=== PATIENT | female | born 1960 | race Caucasian/White ===

== ENCOUNTER 2018-11-12 06:15 | Inpatient (IN) | payer BC ==
[2018-11-11 11:18] LABS: BASOPHIL % 1.5 % (0-2); PLATELET COUNT 307 x10^3mcL (130-400); RED CELL DISTRIBUTION WIDTH 13.5 % (11.5-14.5)
[2018-11-11 11:19] LABS: ALKALINE PHOSPHATASE 120 U/L (46-116); ALT/SGPT 21 U/L (14-59); AST/SGOT 15 U/L (15-37); BILIRUBIN TOTAL 0.6 mg/dL (0.20-1.00); CALCIUM 10.1 mg/dL (8.5-10.1); CARBON DIOXIDE 31.1 mmol/L (21-32); CHLORIDE SERUM 104 mmol/L (98-107); GFR1 > 60 mL/min; GLUCOSE SERUM 105 mg/dL (74-106); POTASSIUM SERUM 4.4 mmol/L (3.5-5.1); SODIUM SERUM 144 mmol/L (136-145); TOTAL PROTEIN, SERUM 6.9 g/dL (6.4-8.2)
[2018-11-11 13:19] LABS: UA SPECIFIC GRAVITY 1.025 (1.005-1.035); microscopic required? YES; urine erythrocyte NEGATIVE (NEGATIVE)
[~2018-11-12] VITALS: Ht 157.5 cm; Wt 91.0 kg
[2018-11-12 06:47] VITALS: BP 153/72
[2018-11-12] MEDS ORDERED: NATURE'S BLEND F1 MG PO (11:03)
[2018-11-12] MEDS ORDERED: CLONAZEPAM0.5 MG PO (11:03)
[2018-11-12] MEDS ORDERED: LITHIUM CARBON300 M1 PO (11:04)
[2018-11-12] MEDS ORDERED: LOSARTAN POTASS1 TAB PO (11:04)
[2018-11-12] MEDS ORDERED: LEVOTHYROXINE0.2 M2 PO (11:05)
[2018-11-12] MEDS ORDERED: FENTANYL TR50 MCG/H1 TOP (11:05)
[2018-11-12] MEDS ORDERED: CYMBALTA60 M1 PO (11:05)
[2018-11-12] MEDS ORDERED: CLONIDINE HCL0.2 MG PO (11:06)
[2018-11-12] MEDS ORDERED: VITAMIN D400 I1 PO (11:06)
[2018-11-12] MEDS ORDERED: NATURAL IRON65 MG PO ×2 (11:06→11:07)
[2018-11-12] MEDS ORDERED: PLA200 PO (11:07)
[2018-11-12] MEDS ORDERED: ZINC30 M1 PO (11:08)
[2018-11-12] MEDS ORDERED: SINGULAIR10 MG PO (11:08)
[2018-11-12] MEDS ORDERED: KLOR-CON M2020 MEQ PO (11:09)
[2018-11-12 13:25] VITALS: BP 154/87
[2018-11-12 20:44] VITALS: BP 150/68
[2018-11-13 06:12] VITALS: BP 142/74
[2018-11-13 07:14] LABS: BASOPHIL % 0.2 % (0-2); PLATELET COUNT 195 x10^3mcL (130-400); RED CELL DISTRIBUTION WIDTH 13.6 % (11.5-14.5)
[2018-11-13 07:36] LABS: CALCIUM 8.7 mg/dL (8.5-10.1); CARBON DIOXIDE 28.9 mmol/L (21-32); CHLORIDE SERUM 110 mmol/L (98-107); CREATININE SERUM 0.8 mg/dL (0.6-1.0); GFR1 > 60 mL/min; GLUCOSE SERUM 135 mg/dL (74-106); POTASSIUM SERUM 4.3 mmol/L (3.5-5.1); SODIUM SERUM 144 mmol/L (136-145)
[2018-11-13] MEDS ORDERED: LOV40I SC (07:49)
[2018-11-13] MEDS ORDERED: COL100 PO (07:50)
[2018-11-13] MEDS ORDERED: APAP/OXYCODONE1 TA4 PO (07:50)
[2018-11-13 09:40] VITALS: BP 144/69
[2018-11-13 13:03] VITALS: BP 144/69
== END 2018-11-13 14:52 | disposition home or self-care (01) | DRG 470 ==
LOC: MU 06:15
PROVIDERS: ADMIT Orthopaedic Surgery
PROC: 0SRD0J9 Replacement of Left Knee Joint with Synthetic Substitute, Cemented, Open Approach (ICD-10-PCS; principal; 2018-11-12 07:30)
DX: M17.12 Unilateral primary osteoarthritis, left knee (principal); E66.9 Obesity, unspecified; I10 Essential (primary) hypertension; J45.909 Unspecified asthma, uncomplicated; M79.7 Fibromyalgia; M06.9 Rheumatoid arthritis, unspecified; F32.9 Major depressive disorder, single episode, unspecified; Z88.8 Allergy status to other drugs, medicaments and biological substances; Z91.013 Allergy to seafood; Z98.42 Cataract extraction status, left eye; Z98.41 Cataract extraction status, right eye
CPT/HCPCS: 97116-GP; 97530-GP; C1713; C1776; G0378; J0171; J0690; J1100; J1170; J1650; J1885; J2250; J2270; J2704; J3010; J3490; J7030; J7120

== ENCOUNTER 2019-10-22 07:14 | Observation (INO) | payer BC ==
[~2019-10-22] VITALS: Ht 157.5 cm; Wt 85.3 kg
[~2019-10-22 07:14] MED LIST: APAP/OXYCODONE1 TA4 PO; BELBUCA450 MCG PO; CLONAZEPAM0.5 MG PO; CLONIDINE HCL0.2 MG PO; CLONIDINE HYDR0.1 M1 PO; COL100 PO; CYMBALTA60 M1 PO; FENTANYL TR50 MCG/H1 TOP; KLOR-CON M2020 MEQ PO; LEVOTHYROXINE0.2 M2 PO; LEVOXYL0.2 MG PO; LITHIUM CARBON300 M1 PO; LITHOBID300 MG PO; LOSARTAN POTASS1 TAB PO; LOV40I SC; NATURAL IRON65 MG PO; NATURE'S BLEND F1 MG PO; PLA200 PO; PLAQUENIL200 MG PO; SALAGEN5 M1; SING10 PO; SINGULAIR10 MG PO; VITAMIN D400 I1 PO; ZINC30 M1 PO
[2019-10-22 07:32] VITALS: BP 163/75
[2019-10-22 13:24] VITALS: BP 150/85
[2019-10-22 18:23] VITALS: BP 100/53
[2019-10-22 20:59] VITALS: BP 119/59
[2019-10-23 05:38] VITALS: BP 134/70
[2019-10-23 07:52] LABS: BASOPHIL % 0.6 % (0-2); RED CELL DISTRIBUTION WIDTH 13.8 % (11.5-14.5)
[2019-10-23 07:55] LABS: CALCIUM 9.9 mg/dL (8.5-10.1); CHLORIDE SERUM 104 mmol/L (98-107); CREATININE SERUM 0.9 mg/dL (0.6-1.0); GFR1 > 60 mL/min; GLUCOSE SERUM 109 mg/dL (74-106); POTASSIUM SERUM 4.9 mmol/L (3.5-5.1); SODIUM SERUM 138 mmol/L (136-145)
[2019-10-23 07:57] LABS: PLATELET COUNT 199 x10^3mcL (130-400)
[2019-10-23 08:48] VITALS: BP 126/66
[2019-10-23 14:03] VITALS: BP 126/66
== END 2019-10-23 14:30 | disposition home or self-care (01) ==
LOC: MU 07:14
PROVIDERS: ADMIT Orthopaedic Surgery; ATTEND Orthopaedic Surgery
DX: M17.11 Unilateral primary osteoarthritis, right knee (principal)
CPT/HCPCS: 97112-GP; 97116-GP; 97530-GP; G0378; J0690; J1170; J1885; J2270; J2405; J3010; J3490; J7120; Q0092